=== PATIENT | female | born 1965 | race Caucasian/White ===

== ENCOUNTER → 2017-03-26 | Outpatient (CLI) | payer BC ==
[~2017-03-26] MED LIST: GLC500 PO; LEVO-217 PO; REVIEWED
== END | disposition home or self-care (01) ==
LOC: C.PAPS 14:28
PROVIDERS: ATTEND Obstetrics & Gynecology
DX: Z01.419 Encounter for gynecological examination (general) (routine) without abnormal findings (principal)

== ENCOUNTER → 2017-03-26 | Outpatient (CLI) | payer BC | END | disposition home or self-care (01) | LOC: C.LAB1850 10:51 | PROVIDERS: ATTEND Obstetrics & Gynecology | DX: N93.9 Abnormal uterine and vaginal bleeding, unspecified (principal) ==

== ENCOUNTER → 2017-03-31 | Outpatient (CLI) | payer BC ==
--- NOTE | 2017-03-31 15:38 | MAMMOGRAPHY REPORT ---
BILATERAL DIGITAL SCREENING MAMMOGRAM TOMOSYNTHESIS WITH CAD: 03/31/2017 CLINICAL HISTORY: Routine screening. TECHNIQUE: Breast tomosynthesis in addition to standard 2D mammography was performed. Current study was also evaluated with a Computer Aided Detection (CAD) system. COMPARISON: Comparison is made to exams dated: 08/20/2014 mammogram, 11/26/2011 mammogram, 10/13/2010 ma mmogram, 09/24/2009 mammogram - [facility], 07/24/2008, and 06/09/2007. BREAST COMPOSITION: There are scattered areas of fibroglandular density in both breasts. FINDINGS: No suspicious masses, calcifications, or areas of architectural distortion are noted in ei ther breast. There has been no significant interval change compared to prior exams. A biopsy marker clip is again noted in the right upper outer quadrant. IMPRESSION: ACR BI-RADS CATEGORY 2: BENIGN There is no mammographic evidence of malignancy. A 1 year screening mammogram is recommended. The pa tient will receive written notification of the results. Approximately 10% of breast cancers are not detected with mammography. A negative mammographic report should not delay biopsy if a clinically suggestive mass is present. Edwina Morris M.D. ah/:03/31/2017 13:56:12 Distribution Field Technician: Tiki GOODSON(R)(M), [facility] letter sent: Normal 1/2 BI-RADS Code: ACR BI-RADS Category 2: Benign
== END | disposition home or self-care (01) ==
LOC: C.MAMM 13:20
PROVIDERS: ATTEND Obstetrics & Gynecology
DX: Z12.31 Encounter for screening mammogram for malignant neoplasm of breast (principal)

== ENCOUNTER → 2018-05-03 | Outpatient (CLI) | payer OTHER ==
--- NOTE | 2018-05-04 13:53 | MAMMOGRAPHY REPORT ---
BILATERAL DIGITAL SCREENING MAMMOGRAM TOMOSYNTHESIS WITH CAD: 05/03/2018 CLINICAL HISTORY: Routine screening. TECHNIQUE: The study was acquired using full field digital technology and interpreted from soft copy. Breast tomosynthesis in addition to standard 2D mammography was performed. Current study was also ev aluated with a Computer Aided Detection (CAD) system. COMPARISON: Comparison is made to exams dated: 03/31/2017 mammogram, 08/20/2014 mammogram, 11/26/2011 ma mmogram, 10/13/2010 mammogram, 09/24/2009 mammogram - [facility], and 07/24/2008. BREAST COMPOSITION: There are scattered areas of fibroglandular density in both breasts. FINDINGS: Involutional changes compared to more remote prior mammograms. Stable asymmetry in the lat eral left breast. Stable metallic biopsy marker clip in the right upper outer quadrant posteriorly. No suspicious mass, architectural distortion or cluster of microcalcifications is seen. IMPRESSION: ACR BI-RADS CATEGORY 1: NEGATIVE There is no mammographic evidence of malignancy. A 1 year screening mammogram is recommended.( [id number]) The patient will receive written notification of the results. Some breast cancers are not detected with mammography. A negative mammographic report should not rafiq y biopsy if a clinically suggestive mass is present. Summer Lynn M.D. ay/:05/03/2018 21:15:01 Desktop Publishing Operator: RT Samara(Wenceslao)(M), [facility] letter sent: Normal 1/2 BI-RADS Code: ACR BI-RADS Category 1: Negative
== END | disposition home or self-care (01) ==
LOC: C.MAMM 16:10
PROVIDERS: ATTEND Obstetrics & Gynecology
DX: Z12.31 Encounter for screening mammogram for malignant neoplasm of breast (principal)